=== PATIENT | female | born 1960 | race African-American/Black ===

== ENCOUNTER 2020-09-03 12:23 | Emergency (ER) | payer MEDICARE, MEDICAID ==
[~2020-09-03] VITALS: Ht 162.6 cm; Wt 71.0 kg
[2020-09-03] MEDS ORDERED: KETOROLAC 60MG/2ML VIAL IM ONE (13:45)
[2020-09-03] MEDS ORDERED: TRAMADOL 50MG TABLET PO ONE (15:45)
[2020-09-03] MEDS ORDERED: ACET650T37 MT (15:52)
[2020-09-03] MEDS ORDERED: LIDO1ADH5 TP (15:52)
[2020-09-03 16:51] VITALS: BP 145/89
== END 2020-09-03 17:48 | disposition home or self-care (01) ==
LOC: ER 12:34
DX: M25.512 Pain in left shoulder (principal); S42.92XS Fracture of left shoulder girdle, part unspecified, sequela; G89.21 Chronic pain due to trauma; M25.571 Pain in right ankle and joints of right foot; S82.891S Other fracture of right lower leg, sequela; M77.31 Calcaneal spur, right foot; X58.XXXS Exposure to other specified factors, sequela; M19.012 Primary osteoarthritis, left shoulder
CPT/HCPCS: 73030; 73610; 96372; 99284; J1885

== ENCOUNTER 2021-01-10 15:28 | Emergency (ER) | payer MEDICARE, MEDICAID ==
[~2021-01-10] VITALS: Ht 165.1 cm; Wt 96.0 kg
[~2021-01-10 15:28] MED LIST: ACET650T37 MT; DIPH25CA83 MT; HYDR-3782 MT; LIDO1ADH5 TP
[2021-01-10] MEDS ORDERED: ACETAMINOPHEN WITH CODEINE 300/30MG TABLET PO ONE (16:30)
[2021-01-10] MEDS ORDERED: BACITRACIN ZINC OINT UDPKT TOP ONE (16:30)
[2021-01-10] MEDS ORDERED: ACET-2708 MT (17:10)
[2021-01-10 18:00] VITALS: BP 131/73
== END 2021-01-10 18:19 | disposition home or self-care (01) ==
LOC: ER 15:28
DX: S80.01XA Contusion of right knee, initial encounter (principal); W01.0XXA Fall on same level from slipping, tripping and stumbling without subsequent striking against object, initial encounter; Y93.02 Activity, running; Y92.488 Other paved roadways as the place of occurrence of the external cause; Z88.2 Allergy status to sulfonamides; Z88.5 Allergy status to narcotic agent; Z88.8 Allergy status to other drugs, medicaments and biological substances
CPT/HCPCS: 73562; 99283

== ENCOUNTER 2021-03-23 14:04 | Emergency (ER) | payer MEDICARE, MEDICAID ==
[~2021-03-23] VITALS: Ht 172.7 cm; Wt 84.0 kg
[~2021-03-23 14:04] MED LIST changes: +ACET-2708 MT
[2021-03-23] MEDS ORDERED: KETOROLAC 60MG/2ML VIAL IM ONE (15:00)
[2021-03-23] MEDS ORDERED: ALPRAZOLAM 0.5 MG TABLET PO ONE (15:00)
[2021-03-23 15:34] VITALS: BP 156/63
== END 2021-03-23 16:40 | disposition home or self-care (01) ==
LOC: ER 14:32
DX: F41.9 Anxiety disorder, unspecified (principal); Z88.2 Allergy status to sulfonamides; Z88.8 Allergy status to other drugs, medicaments and biological substances; Z88.6 Allergy status to analgesic agent; Z79.899 Other long term (current) drug therapy
CPT/HCPCS: 93005; 96372; 99283; J1885

== ENCOUNTER 2021-07-09 12:23 | Emergency (ER) | payer MEDICARE, MEDICAID ==
[~2021-07-09] VITALS: Ht 165.1 cm; Wt 100.0 kg
[2021-07-09] MEDS ORDERED: LORAZEPAM 1MG TABLET PO ONE (13:00)
[2021-07-09] MEDS ORDERED: KETOROLAC 60MG/2ML VIAL IM ONE (13:00)
[2021-07-09] MEDS ORDERED: OLANZAPINE 5MG TABLET ODT PO ONE (13:00)
[2021-07-09 13:14] LABS: BASOPHILS % 0.5 % (0.0-2.0); EOSINOPHILS % 0.5 % (0.0-5.0); HEMATOCRIT. 37.2 % (36.0-48.0); HEMOGLOBIN. 12.2 g/dL (12.0-16.0); LYMPHOCYTES % 29.2 % (20.0-50.0); MEAN CORPUSCULAR HEMOGLOBIN 29.5 pg (28.0-32.0); MEAN CORPUSCULAR VOLUME 89.7 fL (81.0-99.0); MEAN PLATELET VOLUME 8.8 fl (7.4-10.4); NEUTROPHILS % 66.8 % (40.0-76.0); PLATELET 235 x1000/uL (130-400); RED BLOOD CELL COUNT 4.15 mill/uL (4.2-5.4); RED CELL DISTRIBUTION WIDTH 14.6 % (11.6-14.6)
[2021-07-09 13:27] LABS: CHLORIDE 108 mEq/L (98-107)
[2021-07-09 13:31] LABS: ETHANOL BLOOD 10 mg/dL
[2021-07-09 13:59] LABS: CLARITY URINE CLOUDY (CLEAR); COLOR URINE YELLOW (YELLOW); KETONES URINE TRACE (NEGATIVE); LEUKOCYTE ESTERASE URINE 2+ (NEGATIVE); NITRITE URINE NEGATIVE (NEGATIVE); OCCULT BLOOD URINE 1+ (NEGATIVE); PH URINE 5.5 (4.5-8.0); PROTEIN URINE 1+ (NEGATIVE); SPECIFIC GRAVITY URINE 1.024 (1.005-1.030); UROBILINOGEN URINE 0.2 E.U./dL (0.2-1.0)
[2021-07-09 14:18] LABS: *AMPHETAMINES SCREEN URINE NEGATIVE (NEGATIVE); *BARBITURATES SCREEN URINE NEGATIVE (NEGATIVE); *BENZODIAZEPINES SCREEN URINE NEGATIVE (NEGATIVE); *COCAINE SCREEN URINE NEGATIVE (NEGATIVE); CANNABINOID URINE SCREEN NEGATIVE (NEGATIVE); METHADONE URINE SCREEN NEGATIVE (NEGATIVE); PHENCYCLIDINE URINE SCREEN PRESUMTIVE POSITIVE (NEGATIVE)
[2021-07-09 14:19] LABS: OPIATES URINE SCREEN PRESUMTIVE POSITIVE (NEGATIVE)
[2021-07-09] MEDS ORDERED: NITR-87 MT (14:44)
[2021-07-09] MEDS ORDERED: HYDROCODONE/ACETAMINOPHEN 5/325MG TABLET PO ONE (15:00)
[2021-07-09 15:11] VITALS: BP 164/85
== END 2021-07-09 14:51 | disposition home or self-care (01) ==
LOC: ER 12:45
DX: F41.9 Anxiety disorder, unspecified (principal); N39.0 Urinary tract infection, site not specified; T40.995A Adverse effect of other psychodysleptics [hallucinogens], initial encounter; Z88.2 Allergy status to sulfonamides; Z88.8 Allergy status to other drugs, medicaments and biological substances; Z79.899 Other long term (current) drug therapy; Z86.59 Personal history of other mental and behavioral disorders; Y92.9 Unspecified place or not applicable
CPT/HCPCS: 36415; 80053; 80305; 80307; 80320; 80329; 81003; 85025; 96372; 99284; J1885; G0480

== ENCOUNTER 2021-08-14 12:12 | Emergency (ER) | payer MEDICARE, MEDICAID ==
[~2021-08-14] VITALS: Ht 167.6 cm; Wt 80.0 kg
[~2021-08-14 12:12] MED LIST changes: +NITR-87 MT
[2021-08-14 13:35] LABS: BASOPHILS % 1.1 % (0.0-2.0); EOSINOPHILS % 0.6 % (0.0-5.0); HEMATOCRIT. 38.2 % (36.0-48.0); LYMPHOCYTES % 30.4 % (20.0-50.0); MEAN CORPUSCULAR VOLUME 88.1 fL (81.0-99.0); MEAN PLATELET VOLUME 8.6 fl (7.4-10.4); MONOCYTES % 4.2 % (2.0-8.0); NEUTROPHILS % 63.7 % (40.0-76.0); PLATELET 265 x1000/uL (130-400); RED BLOOD CELL COUNT 4.34 mill/uL (4.2-5.4); RED CELL DISTRIBUTION WIDTH 14.6 % (11.6-14.6)
[2021-08-14 13:42] LABS: CHLORIDE 113 mEq/L (98-107)
[2021-08-14 13:50] LABS: ETHANOL BLOOD < 10 mg/dL
[2021-08-14 14:14] VITALS: BP 135/86
[2021-08-14] MEDS ORDERED: KETOROLAC 60MG/2ML VIAL IM ONE (14:15)
== END 2021-08-14 14:27 | disposition home or self-care (01) ==
LOC: ER 13:08
DX: F32.A Depression, unspecified (principal); Z13.9 Encounter for screening, unspecified; Z88.2 Allergy status to sulfonamides; Z88.8 Allergy status to other drugs, medicaments and biological substances; Z86.59 Personal history of other mental and behavioral disorders
CPT/HCPCS: 36415; 80053; 80307; 80320; 80329; 85025; 96372; 99283; J1885; G0480

== ENCOUNTER 2021-10-08 08:23 | Emergency (ER) | payer MEDICARE, MEDICAID ==
[~2021-10-08] VITALS: Ht 170.2 cm; Wt 100.0 kg
[~2021-10-08 08:23] MED LIST changes: +ACET-3163 MT; -ACET650T37 MT
[2021-10-08] MEDS ORDERED: LORAZEPAM 1MG TABLET PO ONE ×2 (09:00→11:15)
[2021-10-08 09:37] LABS: BASOPHILS % 0.8 % (0.0-2.0); EOSINOPHILS % 1.3 % (0.0-5.0); HEMATOCRIT. 37.6 % (36.0-48.0); LYMPHOCYTES % 30.7 % (20.0-50.0); MEAN CORPUSCULAR HEMOGLOBIN 30.6 pg (28.0-32.0); MEAN CORPUSCULAR VOLUME 88.6 fL (81.0-99.0); MEAN PLATELET VOLUME 8.7 fl (7.4-10.4); MONOCYTES % 3.1 % (2.0-8.0); NEUTROPHILS % 64.1 % (40.0-76.0); PLATELET 271 x1000/uL (130-400); RED BLOOD CELL COUNT 4.24 mill/uL (4.2-5.4); RED CELL DISTRIBUTION WIDTH 15.1 % (11.6-14.6)
[2021-10-08 09:47] LABS: CHLORIDE 105 mEq/L (98-107)
[2021-10-08] MEDS ORDERED: IBUPROFEN 400MG TABLET PO SCH (11:00)
[2021-10-08 11:07] VITALS: BP 139/64
[2021-10-08] MEDS ORDERED: KETOROLAC 15MG/ML VIAL IV ONE (11:15)
[2021-10-08] MEDS ORDERED: ONDANSETRON HCL 4MG/2ML INJ IV ONE (11:15)
[2021-10-08] MEDS ORDERED: LORA-250 MT ×3 (12:06→12:52)
== END 2021-10-08 13:15 | disposition home or self-care (01) ==
LOC: ER 08:23
DX: F41.9 Anxiety disorder, unspecified (principal); M54.2 Cervicalgia; Z88.2 Allergy status to sulfonamides; Z88.8 Allergy status to other drugs, medicaments and biological substances; Z79.899 Other long term (current) drug therapy; Z86.59 Personal history of other mental and behavioral disorders; Z86.39 Personal history of other endocrine, nutritional and metabolic disease
CPT/HCPCS: 36415; 71045; 80053; 83880; 84484; 85025; 93005; 96374; 96375; 99285; J1885; J2405

== ENCOUNTER 2021-11-19 09:46 | Emergency (ER) | payer MEDICARE, MEDICAID ==
[~2021-11-19] VITALS: Ht 167.6 cm; Wt 77.0 kg
[~2021-11-19 09:46] MED LIST changes: +LORA-250 MT
[2021-11-19] MEDS ORDERED: FLUORESCEIN SODIUM 1MG/STRIP RIGHTEYE ONE (10:15)
[2021-11-19] MEDS ORDERED: TETRACAINE 0.5% OPHTH DROPS 4ML RIGHTEYE ONE (10:15)
[2021-11-19] MEDS ORDERED: HYDROCODONE/ACETAMINOPHEN 5/325MG TABLET PO ONE (11:45)
[2021-11-19] MEDS ORDERED: IBUP-2028 MT (13:32)
[2021-11-19] MEDS ORDERED: [UNRECOGNIZED DRUG - CODE] RIGHTEYE (13:32)
[2021-11-19] MEDS ORDERED: HYDR-4001 MT (13:32)
[2021-11-19 14:54] VITALS: BP 153/78
[2021-11-21] MEDS ORDERED: AMLO2.5T45 MT (03:14)
[2021-11-21] MEDS ORDERED: GABA-529 MT (03:14)
[2021-11-23] MEDS ORDERED: QUET50TA MT (13:02)
== END 2021-11-19 14:57 | disposition home or self-care (01) ==
LOC: ER 09:46
DX: H57.11 Ocular pain, right eye (principal); I10 Essential (primary) hypertension; Z88.2 Allergy status to sulfonamides; Z88.8 Allergy status to other drugs, medicaments and biological substances; Z79.899 Other long term (current) drug therapy; Z86.59 Personal history of other mental and behavioral disorders; Z86.39 Personal history of other endocrine, nutritional and metabolic disease
CPT/HCPCS: 99283